=== PATIENT | female | born 1995 | race African-American/Black ===

== ENCOUNTER 2022-07-26 17:36 | Emergency (ER) | payer MEDICAID ==
[~2022-07-26] VITALS: Ht 167.6 cm; Wt 64.0 kg
[2022-07-26 17:52] VITALS: BP 115/56
[2022-07-26 21:02] LABS: BASOPHILS % 0.4 % (0.0-2.0); EOSINOPHILS % 0.1 % (0.0-5.0); HEMATOCRIT. 39.4 % (36.0-48.0); HEMOGLOBIN. 12.8 g/dL (12.0-16.0); LYMPHOCYTES % 23.6 % (20.0-50.0); MEAN CORPUSCULAR HEMOGLOBIN 28.3 pg (28.0-32.0); MEAN CORPUSCULAR VOLUME 87.1 fL (81.0-99.0); MEAN PLATELET VOLUME 11.1 fl (7.4-10.4); NEUTROPHILS % 68.9 % (40.0-76.0); PLATELET 175 x1000/uL (130-400); RED BLOOD CELL COUNT 4.53 mill/uL (4.2-5.4); RED CELL DISTRIBUTION WIDTH 14.1 % (11.6-14.6)
[2022-07-26 21:14] LABS: CHLORIDE 105 mEq/L (98-107)
[2022-07-26] MEDS ORDERED: VISCOUS LIDOCAINE 2% 15 ML UDC PO STA (21:32)
[2022-07-26] MEDS ORDERED: MAGNESIUM/ALUMINUM HYDROXIDE/SIMETHICONE 30ML UDC PO STA (21:32)
[2022-07-26] MEDS ORDERED: ONDANSETRON 4MG ODT PO STA (21:32)
[2022-07-26] MEDS ORDERED: DICYCLOMINE 10 MG/5 ML ORAL SYR PO STA (21:32)
[2022-07-26] MEDS ORDERED: FAMO-135 MT (22:09)
== END 2022-07-26 22:16 | disposition home or self-care (01) ==
LOC: ER 17:36
DX: K29.70 Gastritis, unspecified, without bleeding (principal)
CPT/HCPCS: 36415; 80053; 81025; 83690; 85025; 99284; Q0162